=== PATIENT | male | born 1985 | race Caucasian/White ===

== ENCOUNTER 2016-10-25 00:35 | Day surgery (SDC) | payer OTHER ==
[~2016-10-25] VITALS: Ht 167.6 cm; Wt 95.2 kg
[~2016-10-25 00:35] MED LIST: MULT-544 PO
[2016-10-25] MEDS ORDERED: Sodium Chloride LOK Flush 10 mL Syringe IV PRN (06:00)
[2016-10-25] MEDS ORDERED: fentaNYL-PF 50 mCg/mL 2 mL Inj IVPUSH PRN (06:00)
[2016-10-25 10:14] VITALS: BP 142/76; PULSE 65; RESP 16; O2SAT 95
[2016-10-25] MEDS: 0.9% Sodium Chloride 1,000 ML IV SCH ×3 (10:20→10:50)
[2016-10-25 10:57] VITALS: BP 99/53; PULSE 70; RESP 16; O2SAT 95
[2016-10-25 11:07] VITALS: BP 95/50; PULSE 59; RESP 16; O2SAT 95
[2016-10-25 11:17] VITALS: BP 110/69; PULSE 63; RESP 16; O2SAT 96
--- NOTE | 2016-10-26 07:06 | ENDO ---
[address] [address] ENDOSCOPY PROCEDURE PATIENT: MANDY CASH : 1985 MR#: [id number] ADMIT: 10/25/2016 JOB ID: [id number] DATE OF SERVICE: 10/25/2016 OPERATION: 1. Esophagogastroduodenoscopy with biopsy. 2. Colonoscopy with biopsy. PREOPERATIVE DIAGNOSIS(ES): Dyspepsia and diarrhea. POSTOPERATIVE DIAGNOSIS(ES): 1. Mild distal esophagitis. 2. Mild nonerosive gastritis. 3. Normal colonoscopy, status post biopsy. ANESTHESIA: Fentanyl 150 mcg, Versed 7 mg IV administered. COMPLICATIONS: None. BLOOD LOSS: Minimal. DESCRIPTION OF PROCEDURE: After risks and benefits were explained to the patient, informed consent was obtained. After anesthesia was administered, upper endoscope was inserted in mouth, into the esophagus, stomach, second portion of duodenum, and mucosa carefully examined. After procedure was done, the scope was withdrawn and procedure terminated. Colonoscope was inserted from rectum to terminal ileum and mucosa carefully examined. Prep of the patient was excellent. After the procedure was done, the scope was withdrawn and the procedure terminated. FINDINGS: Upon inspection of the esophagus, there was mild distal erosive esophagitis. Z-line located at 40 cm from incisors. Upon entering the stomach, there was mild nonerosive gastritis that was seen. No masses or ulcers were seen. Retroflexion was normal. Duodenal bulb, first and second portion normal. Biopsies taken of duodenum, antrum, body of stomach, and distal esophagus. Upon inspection of the anus, no masses, hemorrhoids, ulcers, or fissures were seen throughout the entire examination. There were no polyps, masses, or lesions. Biopsies taken of the terminal ileum and random colon. Retroflexion was normal. IMPRESSION: 1. Normal colonoscopy, status post biopsy. 2. Mild distal esophagitis. 3. Mild nonerosive gastritis. RECOMMENDATION: Await pathology results. Follow up with Milton Sauceda PA-C, in GI clinic as an outpatient.
--- NOTE | 2016-10-29 14:57 | PATH ---
SURGICAL PATHOLOGY Attending Physician:Gordo Anne MD CASE STATUS: Signed Out PATIENT NAME: MANDY CASH PID: [id number] : 1985 DATE COLLECTED:10/25/2016 16:27 SPECIMEN: 1: Duodenum, Biopsy 2: Stomach, Antrum, Biopsy 3: Gastric, Biopsy 4: Esophagus, Biopsy 5: Small Intestine/Bowel, Biopsy 6: Colon, Biopsy CLINICAL HISTORY: 1. DUODENAL BXS 2. ANTRUM BXS 3. GASTRIC BODY BXS 4. DISTAL ESOPHAGUS BXS 5. TI BXS 6. RANDOM COLON BXS FINAL DIAGNOSIS: 1. Duodenal Biopsies: Duodenal mucosa with no diagnostic alterations. Negative for inflammation, celiac, dysplasia and malignancy. 2. Antrum Biopsies: Gastric antral mucosa with moderate chronic active gastritis. Positive for Helicobacter organisms on H&E stains. Negative for intestinal metaplasia. Negative for dysplasia and malignancy. 3. Gastric Body Biopsies: Gastric body mucosa with focal chronic active inflammation. Negative for intestinal metaplasia. Negative for dysplasia and malignancy. 4. Distal Esophagus Biopsies: Squamous mucosa with mild reactive changes. Negative for intestinal metaplasia. Negative for dysplasia and malignancy. Eosinophils are not increased. 5. TI Biopsies: Ileal and colonic mucosal biopsies with no diagnostic alterations. Negative for inflammation, granulomas, dysplasia and malignancy. 6. Random Colon Biopsies: No tissue identified in specimen container (see part 5). ICD10: K29.00 B96.81 GROSS DESCRIPTION: The specimen is received in six formalin filled containers labeled with the patient's name. 1). The specimen is sublabeled "duodenal" and consists of 3 portions of tissue which aggregate to 0.3 x 0.3 x 0.2 CM. The specimen is entirely submitted in cassette 1A. 2). The specimen is sublabeled "antrum" and consists of 2 portions of tissue which aggregate to 0.3 x 0.3 x 0.2 CM. The specimen is entirely submitted in cassette 2A. 3). The specimen is sublabeled "gastric body" and consists of a 0.4 x 0.3 x 0.3 CM portion of tissue which is entirely submitted in cassette 3A. 4). The specimen is sublabeled "distal esophagus" and consists of a 0.3 x 0.3 x 0.2 CM portion of tissue which is entirely submitted in cassette 4A. 5). The specimen is sublabeled " TI " and consists of 5 portions of tissue which aggregate to 0.5 x 0.5 x 0.3 CM. The specimen is entirely submitted in cassette 5A. 6). The specimen is sublabeled "random colon" and consists no visible tissue observed in container. Specimen will be forwarded to cytology for cell block preparation. 10/25/2016 [facility] MICRO DESCRIPTION: Please see diagnosis. ICD-9 CODES: CPT CODES: 1: 03647 2: 67394 3: 20020 4: 58359 5: 98638 6: 66332 Electronically Signed Out Shoshana Santillan MD [facility] [address], [place] [address] Technical component performed at [facility], [facility] [address], [place], [address]
== END 2016-10-25 23:59 | disposition home or self-care (01) ==
LOC: END 00:35
PROVIDERS: ATTEND Internal Medicine Gastroenterology
DX: R19.7 Diarrhea, unspecified (principal); K29.50 Unspecified chronic gastritis without bleeding; K20.9 Esophagitis, unspecified
CPT/HCPCS: 43239; 45380; 99153; G0500; J7030